=== PATIENT | female | born 1970 | race Caucasian/White ===

== ENCOUNTER 2019-11-29 09:19 | Outpatient (CLI) | payer OTHER ==
[2019-11-29] MEDS ORDERED: CIME200T6 PO (10:08)
[2019-11-29] MEDS ORDERED: MAGN400T36 PO (10:08)
[2019-11-29] MEDS ORDERED: CHOL10003 PO (10:08)
[2019-11-29] MEDS ORDERED: CETI10TA26 PO (10:08)
[2019-11-29] MEDS ORDERED: POTASSIUM PO (10:08)
[2019-11-29] MEDS ORDERED: NORETHINDRONE PO (10:08)
[2019-11-29] MEDS ORDERED: GLUC1CAP18 PO (10:08)
[2019-11-29] MEDS ORDERED: LEVO50TA5 PO (10:08)
[2019-11-29] MEDS ORDERED: METF750T42 PO (10:08)
[2019-11-29] MEDS ORDERED: HYDR200T72 PO (10:08)
[2019-11-29] MEDS ORDERED: SERT50TA28 PO (10:08)
[2019-11-29] MEDS ORDERED: SIMV20TA19 PO (10:08)
[2019-11-29 10:53] LABS: ALBUMIN 3.6 g/dL (3.4-5.0); ANION GAP 6 mmol/L (5-15); CALCIUM 8.8 mg/dL (8.5-10.1); CHLORIDE 112 mmol/L (98-107)
[2019-11-29 10:56] LABS: ALANINE AMINOTRANSFERASE 32 U/L (12-78); ALKALINE PHOSPHATASE 141 U/L (45-117); BILIRUBIN,TOTAL 0.3 mg/dL (0.2-1.0); CREATININE 0.78 mg/dL (0.55-1.02); TOTAL PROTEIN 7.5 g/dL (6.4-8.2)
== END 2019-11-29 23:59 | disposition home or self-care (01) ==
LOC: STAR 09:19
PROVIDERS: ATTEND Dermatology
DX: Z01.818 Encounter for other preprocedural examination (principal); Z11.59 Encounter for screening for other viral diseases; M76.822 Posterior tibial tendinitis, left leg; M79.672 Pain in left foot
CPT/HCPCS: 36415; 80053; 87635; 93005

== ENCOUNTER 2019-12-03 05:13 | Observation (INO) | payer OTHER ==
[~2019-12-03] VITALS: Ht 165.1 cm; Wt 134.3 kg
[~2019-12-03 05:13] MED LIST: CETI10TA26 PO; CHOL10003 PO; CIME200T6 PO; GLUC1CAP18 PO; HYDR200T72 PO; LEVO50TA5 PO; MAGN400T36 PO; METF750T42 PO; NORETHINDRONE PO; POTASSIUM PO; SERT50TA28 PO; SIMV20TA19 PO
[2019-12-03] MEDS ORDERED: LACTATED RINGERS 1,000 ML IV SCH (05:45)
[2019-12-03 05:49] VITALS: BP 152/94
[2019-12-03] MEDS ORDERED: CHLORHEXIDINE 15 ML UDC ONE (05:52)
[2019-12-03] MEDS ORDERED: CHLORHEXIDINE 15 ML UDC MM ONE (06:00)
[2019-12-03] MEDS ORDERED: FENTANYL PF 250 MCG/5ML ONE (06:33)
[2019-12-03] MEDS ORDERED: MIDAZOLAM 1 MG/ML, 2ML ONE ×2 (06:33)
[2019-12-03] MEDS ORDERED: EPHEDRINE 50 MG/ML, 1ML ONE (07:08)
[2019-12-03] MEDS ORDERED: CLINDAMYCIN 150 MG/ML, 6ML ONE (07:18)
[2019-12-03] MEDS ORDERED: FENTANYL PF 100 MCG/2ML ONE ×2 (08:55→10:47)
[2019-12-03] MEDS ORDERED: MEPERIDINE/PF 25MG/0.5ML IVPush PRN (09:30)
[2019-12-03] MEDS ORDERED: HALOPERIDOL 5 MG/ML IV PRN (09:30)
[2019-12-03] MEDS ORDERED: PROMETHAZINE 25 MG/ML, 1ML IVPush PRN (09:30)
[2019-12-03] MEDS ORDERED: hydrALAzine 20 MG/ML, 1ML IV PRN (09:30)
[2019-12-03] MEDS ORDERED: DIPHENHYDRAMINE 50 MG/ML, 1ML IVPush PRN (09:30)
[2019-12-03] MEDS ORDERED: LABETALOL 5MG/ML, 20ML IV PRN (09:30)
[2019-12-03] MEDS ORDERED: HYDROmorphone 1 MG/ML, 1ML INJ IVPush PRN (09:30)
[2019-12-03] MEDS ORDERED: ESMOLOL 100 MG/10 ML ONE (10:11)
[2019-12-03] MEDS ORDERED: HYDROcodone/APAP 7.5-325MG/15ML UDC ONE (10:47)
[2019-12-03] MEDS: HYDROcodone/APAP 7.5-325MG/15ML UDC PO PRN ×2 (10:48→15:51)
[2019-12-03] MEDS: FENTANYL PF 100 MCG/2ML IV PRN ×2 (10:50→11:00)
[2019-12-03] MEDS ORDERED: METOPROLOL 1 MG/ML, 5ML ONE (11:16)
[2019-12-03] MEDS ORDERED: METOPROLOL 1 MG/ML, 5ML IVPush ONE (11:30)
[2019-12-03] MEDS ORDERED: CEFAZOLIN 1,000 MG ONE (11:44)
[2019-12-03] MEDS ORDERED: SUCCINYLCHOLINE 20 MG/ML, 10ML ONE (11:44)
[2019-12-03] MEDS ORDERED: ONDANSETRON 2MG/ML, 2ML ONE (11:44)
[2019-12-03] MEDS ORDERED: GLYCOPYRROLATE 0.2MG/1ML, 5ML ONE (11:44)
[2019-12-03] MEDS ORDERED: NEOSTIGMINE 1 MG/ML, 10ML ONE (11:44)
[2019-12-03] MEDS ORDERED: ROCURONIUM 10MG/ML,5ML ONE (11:44)
[2019-12-03] MEDS ORDERED: DEXAMETHASONE 4 MG/ML, 1ML ONE (11:44)
[2019-12-03] MEDS ORDERED: PROPOFOL 10 MG/ML, 20ML ONE (11:44)
[2019-12-03] MEDS ORDERED: ONDANSETRON 2MG/ML, 2ML IVPush PRN ×2 (18:30→18:45)
[2019-12-03] MEDS ORDERED: morphine SULFATE 10 MG/ML, 1ML IVPush PRN ×2 (18:30→18:45)
[2019-12-03] MEDS ORDERED: ALBUTEROL HFA 90 MCG/SPRAY INH PRN (18:30)
[2019-12-03] MEDS ORDERED: MELATONIN 5 MG TABLET PO PRN ×2 (18:30→18:45)
[2019-12-03] MEDS ORDERED: HYDROcodone/APAP 5/325 TABLET PO PRN (18:30)
[2019-12-03] MEDS ORDERED: DOCUSATE 100 MG CAPSULE PO PRN ×2 (18:30→18:45)
[2019-12-03] MEDS ORDERED: ACETAMINOPHEN 325 MG TABLET PO PRN ×2 (18:30→18:45)
[2019-12-03] MEDS ORDERED: HYDROcodone/APAP 10/325 MG TABLET PO ONE (18:30)
[2019-12-03] MEDS ORDERED: ONDANSETRON ODT 4 MG PO PRN ×2 (18:30→18:45)
[2019-12-03 19:27] VITALS: BP 133/69
[2019-12-03 23:53] VITALS: BP 104/60
[2019-12-04] MEDS: HYDROcodone/APAP 5/325 TABLET PO PRN ×3 (01:53→14:30)
[2019-12-04 03:24] VITALS: BP 107/60
[2019-12-04 07:26] VITALS: BP 115/67
[2019-12-04] MEDS ORDERED: SENNA/DOCUSATE TABLET PO SCH ×2 (09:00)
[2019-12-04] MEDS ORDERED: FUROSEMIDE 20 MG/2 ML IV ONE (09:30)
[2019-12-04] MEDS ORDERED: ASPI-515 PO (12:15)
[2019-12-04] MEDS ORDERED: ALBU18HF INH (12:15)
[2019-12-04 13:15] VITALS: BP 100/60
== END 2019-12-04 17:03 | disposition home or self-care (01) ==
LOC: OUT 05:13 → 4NE 18:20 → DCLOUNGE 12-04 16:57
PROVIDERS: ADMIT Orthopaedic Surgery; ATTEND Orthopaedic Surgery
DX: M19.172 Post-traumatic osteoarthritis, left ankle and foot (principal); T14.90XS Injury, unspecified, sequela; M67.972 Unspecified disorder of synovium and tendon, left ankle and foot; M21.179 Varus deformity, not elsewhere classified, unspecified ankle; R09.02 Hypoxemia; E03.9 Hypothyroidism, unspecified; E66.01 Morbid (severe) obesity due to excess calories; E11.9 Type 2 diabetes mellitus without complications; Z79.899 Other long term (current) drug therapy; Z87.891 Personal history of nicotine dependence; X58.XXXS Exposure to other specified factors, sequela
CPT/HCPCS: 20902; 27687; 27691; 28005; 28725; 71045; 73620; 76000; 81025; 82962; 96374; 96375; 97161; C1713; C1769; C1776; G0378; J0330; J0690; J1100; J1940; J2250; J2270; J2405; J2704; J2710; J3010; J7120; S0077

== ENCOUNTER → 2020-03-27 | Outpatient (CLI) | payer OTHER ==
[~2020-03-27] MED LIST changes: +ALBU18HF INH; +ASPI-515 PO; -CETI10TA26 PO; +CETI10TA76 PO
== END | disposition home or self-care (01) ==
LOC: RAD 12:41
PROVIDERS: ATTEND Orthopaedic Surgery
DX: M79.662 Pain in left lower leg (principal); M79.672 Pain in left foot